=== PATIENT | male | born 1990 | race Caucasian/White ===

== ENCOUNTER 2020-08-30 10:47 | Outpatient (CLI) | payer BC ==
--- NOTE | 2020-08-30 12:41 | RAD ---
TWO VIEW CHEST: HISTORY: Chest pain. FINDINGS: Lung logan are clear. Heart and mediastinum appear normal. Osseous structures appear nor mal. IMPRESSION: No acute abnormality. POS: [id number]
== END 2020-08-30 10:48 | disposition home or self-care (01) ==
LOC: BICRAD 10:47
PROVIDERS: ATTEND Family Medicine
DX: R07.9 Chest pain, unspecified (principal)
CPT/HCPCS: 71046